=== PATIENT | male | born 1945 | race Hispanic/Latino ===

== ENCOUNTER → 2023-01-12 | Outpatient (CLI) | payer MEDICARE, OTHER | END | disposition home or self-care (01) | LOC: RAH 07:42 | PROVIDERS: ATTEND Internal Medicine Gastroenterology | DX: K74.60 Unspecified cirrhosis of liver (principal); I70.0 Atherosclerosis of aorta; Z90.49 Acquired absence of other specified parts of digestive tract | CPT/HCPCS: 76700; 93975 ==

== ENCOUNTER → 2024-02-21 | Outpatient (CLI) | payer MEDICARE | END | disposition home or self-care (01) | LOC: RAH 10:22 | PROVIDERS: ATTEND Internal Medicine | DX: M17.11 Unilateral primary osteoarthritis, right knee (principal); M25.561 Pain in right knee | CPT/HCPCS: 73560 ==

== ENCOUNTER 2024-05-10 20:38 | Emergency (ER) | payer MEDICARE ==
[~2024-05-10] VITALS: Ht 175.3 cm; Wt 68.0 kg
[2024-05-10 21:00] LABS: BASOPHILS # (AUTO) 0.04 K/uL (0.00-0.20); BASOPHILS % (AUTO) 0.6 % (0.0-5.0); EOSINOPHILS # (AUTO) 0.16 K/uL (0.00-0.70); EOSINOPHILS % (AUTO) 2.3 % (0.0-8.0); HEMATOCRIT 32.5 % (42-54); IMMATURE GRANULOCYTE ABSOLUTE 0.04 K/uL (0-1); LYMPHOCYTES # (AUTO) 1.4 K/uL (1.0-4.8); LYMPHOCYTES % (AUTO) 20.5 % (21.0-51.0); MEAN CORPUSCULAR HEMOGLOBIN 31.2 pg (27.0-33.0); MEAN CORPUSCULAR HGB CONC 33.8 g/dL (32.0-36.0); MEAN CORPUSCULAR VOLUME 92.1 fL (79-99); MONOCYTES # (AUTO) 1.1 K/uL (0.1-1.0); MONOCYTES % (AUTO) 15.5 % (3.0-13.0); NEUTROPHILS # (AUTO) 4.1 K/uL (1.8-7.7); NEUTROPHILS % (AUTO) 60.5 % (40.0-77.0); PLATELET COUNT (AUTO) 155 K/uL (130-400); RED BLOOD CELL COUNT(AUTO) 3.53 MIL/uL (4.50-6.20); RED CELL DISTRIBUTION WIDTH 13.2 % (11.0-15.5); WHITE BLOOD COUNT (AUTO) 6.8 K/uL (4.8-10.8)
[2024-05-10 21:14] LABS: B-TYPE NATRIURETIC PEPTIDE 42 pg/mL (0-100)
[2024-05-10 21:19] LABS: ALBUMIN 3.3 g/dL (3.5-5.0); BILIRUBIN,TOTAL 0.6 mg/dL (0.2-1.0); CREATININE 0.9 mg/dL (0.5-1.3); INR 1.44 (0.85-1.15); POTASSIUM 4.1 mmol/L (3.5-5.1); PROTHROMBIN TIME 15.1 SEC (9.6-11.6); TOTAL PROTEIN, SERUM 6.4 g/dL (6.0-8.3)
[2024-05-10 21:21] LABS: PARTIAL THROMBOPLASTIN TIME 23.1 SEC (26.3-35.5)
[2024-05-10 21:35] LABS: APPEARANCE,URINE CLEAR (CLEAR); BILIRUBIN,URINE NEGATIVE (NEGATIVE); COLOR,URINE COLORLESS (YELLOW); GLUCOSE, URINE (UA) NEGATIVE (NEGATIVE); KETONES,URINE NEGATIVE (NEGATIVE); LEUKOCYTE ESTERASE ,URINE NEGATIVE Leu/uL (NEGATIVE); NITRATE,URINE NEGATIVE (NEGATIVE); OCCULT BLOOD,URINE LARGE (NEGATIVE); PH,URINE 5.5 (5.0-8.0); PROTEIN,URINE NEGATIVE (NEGATIVE); UROBILINOGEN,URINE 0.2 mg/dL (0.2-1.0)
[2024-05-10 21:40] LABS: ADD UA MICROSCOPIC YES
[2024-05-10 21:42] LABS: BACTERIA,URINE RARE /HPF (None Seen); MUCUS,URINE RARE LPF (None Seen); WBC,URINE 0-1 /HPF (0-1)
[2024-05-10] MEDS ORDERED: TAMS-1 PO (21:49)
[2024-05-10] MEDS ORDERED: EZET10TA48 PO (21:49)
[2024-05-10] MEDS ORDERED: MEMA10TA21 PO (21:49)
[2024-05-10] MEDS ORDERED: WARF2TAB9 PO (21:49)
[2024-05-10] MEDS ORDERED: METO-408 PO (21:49)
[2024-05-10] MEDS ORDERED: TRAZ150T79 PO (21:49)
[2024-05-10] MEDS ORDERED: CIPR250S6 PO (21:49)
[2024-05-10] MEDS ORDERED: LINA72CA PO (21:49)
[2024-05-10] MEDS ORDERED: LEVO125C4 PO (21:49)
[2024-05-10] MEDS ORDERED: RAMI2.5C57 PO (21:49)
[2024-05-10] MEDS ORDERED: MIRT7.5T11 PO (21:49)
[2024-05-10] MEDS ORDERED: ROSU20TA73 PO (21:49)
[2024-05-10] MEDS ORDERED: AMOX500C2 PO (21:49)
[2024-05-10 22:29] VITALS: BP 135/60; PULSE 72; RESP 18; O2SAT 97
== END 2024-05-10 23:34 | disposition home or self-care (01) ==
LOC: EDH 20:38
DX: Z04.3 Encounter for examination and observation following other accident (principal); F03.90 Unspecified dementia, unspecified severity, without behavioral disturbance, psychotic disturbance, mood disturbance, and anxiety; I10 Essential (primary) hypertension; Z88.0 Allergy status to penicillin; Z79.899 Other long term (current) drug therapy; Z79.01 Long term (current) use of anticoagulants; Z79.2 Long term (current) use of antibiotics; W18.39XA Other fall on same level, initial encounter; Y93.89 Activity, other specified; Y92.89 Other specified places as the place of occurrence of the external cause; Y99.8 Other external cause status
CPT/HCPCS: 36415; 70450; 71045; 80053; 81001; 82550; 83735; 83880; 84484; 85025; 85610; 85730; 93005

== ENCOUNTER → 2024-05-21 | Outpatient (CLI) | payer MEDICARE ==
[~2024-05-21] MED LIST: AMOX500C2 PO; CIPR250S6 PO; EZET10TA48 PO; LEVO125C4 PO; LINA72CA PO; MEMA10TA21 PO; METO-408 PO; MIRT7.5T11 PO; RAMI2.5C57 PO; ROSU20TA73 PO; TAMS-1 PO; TRAZ150T79 PO; WARF2TAB9 PO
== END | disposition home or self-care (01) ==
LOC: RAH 10:28
PROVIDERS: ATTEND Internal Medicine
DX: R31.9 Hematuria, unspecified (principal); R33.9 Retention of urine, unspecified
CPT/HCPCS: 76770

== ENCOUNTER → 2024-05-28 | Outpatient (CLI) | payer MEDICARE | END | disposition home or self-care (01) | LOC: RAH 11:43 | PROVIDERS: ATTEND Internal Medicine | DX: R63.4 Abnormal weight loss (principal) | CPT/HCPCS: 74230; 92611 ==

== ENCOUNTER → 2024-09-16 | Outpatient (CLI) | payer MEDICARE ==
[~2024-09-16] MED LIST changes: -ROSU20TA73 PO; +ROSU20TA98 PO
--- NOTE | 2024-09-16 12:01 | HMCIMG ---
CHEST 1VW REASON: FEEDING DIFFICULTIES COMPARISON: 07/10/2024 FINDINGS: Single view of the chest was obtained. Lungs are clear. Heart size is normal. There is no pulmonary vascular congestion. Mediastinum and bony thorax appear unremarkable. There is been a previous median sternotomy. IMPRESSION: 1. No acute finding, no change.
== END | disposition home or self-care (01) ==
LOC: RAH 10:41
PROVIDERS: ATTEND Internal Medicine Gastroenterology
DX: R63.30 Feeding difficulties, unspecified (principal)
CPT/HCPCS: 71045

== ENCOUNTER → 2024-10-24 | Outpatient (CLI) | payer MEDICARE ==
--- NOTE | 2024-10-24 13:00 | NUR ---
MBSS COMPLETED. SILENT ASPIRATION with pudding thick and deep non-transient penetrations with honey thick liquids with no response. Recommend NPO, care home alternate means of nutrition/hydration. [employer] reviewed results and recommendations with patient, , and rn home care. [employer] educated patient/family on risks and consequences of aspiration. Speech therapy not warranted at this time. Pt with Hx of dysphagia since May 2024 likely patient's baseline diet. All questions answered. Addendum: 10/24/[address] OVIDIO AZUL Amended: Links added.
--- NOTE | 2024-10-24 14:08 | HMCIMG ---
MODIFIED BARIUM SWALLOW W CINE REASON: Dysphagia unspecified. COMPARISON: None TECHNIQUE: Modified barium swallow study was performed with the referring speech therapist. Fluoroscopy time is 1 minutes. FINDINGS: Please see procedure report by referring physician. IMPRESSION: Modified barium swallow study.
== END | disposition home or self-care (01) ==
LOC: RAH 12:26
PROVIDERS: ATTEND Internal Medicine Gastroenterology
DX: R13.10 Dysphagia, unspecified (principal); R63.30 Feeding difficulties, unspecified
CPT/HCPCS: 74230; 92611

== ENCOUNTER → 2024-12-03 | Outpatient (CLI) | payer MEDICARE ==
--- NOTE | 2024-12-03 16:15 | HMCIMG ---
CHEST 2VWS REASON: ENCOUNTER FOR OBSERVATION FOR SUSPECTED ASPIRATED FOREIGN BODY RULED OUT COMPARISON: 09/16/2024 FINDINGS: Two views of the chest were obtained. Lungs are clear. Heart size is normal. There is no pulmonary vascular congestion. Mediastinum and bony thorax appear unremarkable. There is been a previous median sternotomy. IMPRESSION: 1. No acute finding, no change.
== END | disposition home or self-care (01) ==
LOC: RAH 15:19
PROVIDERS: ATTEND Internal Medicine
DX: Z03.822 Encounter for observation for suspected aspirated (inhaled) foreign body ruled out (principal)
CPT/HCPCS: 71046

== ENCOUNTER 2025-03-15 21:00 | Emergency (ER) | payer MEDICARE ==
[~2025-03-15] VITALS: Ht 180.3 cm; Wt 59.0 kg
[~2025-03-15 21:00] MED LIST changes: -LEVO125C4 PO; +LEVO125C5 PO; -TAMS-1 PO; +TAMS-55 PO
[2025-03-15 21:33] LABS: BASOPHILS # (AUTO) 0.04 K/uL (0.00-0.20); BASOPHILS % (AUTO) 0.6 % (0.0-5.0); EOSINOPHILS # (AUTO) 0.13 K/uL (0.00-0.70); EOSINOPHILS % (AUTO) 2.1 % (0.0-8.0); HEMATOCRIT 37.3 % (42-54); IMMATURE GRANULOCYTE ABSOLUTE 0.04 K/uL (0-1); LYMPHOCYTES # (AUTO) 1.7 K/uL (1.0-4.8); MEAN CORPUSCULAR HEMOGLOBIN 30.8 pg (27.0-33.0); MEAN CORPUSCULAR HGB CONC 32.4 g/dL (32.0-36.0); MEAN CORPUSCULAR VOLUME 94.9 fL (79-99); MONOCYTES % (AUTO) 15.4 % (3.0-13.0); NEUTROPHILS # (AUTO) 3.3 K/uL (1.8-7.7); NEUTROPHILS % (AUTO) 53.3 % (40.0-77.0); PLATELET COUNT (AUTO) 169 K/uL (130-400); RED BLOOD CELL COUNT(AUTO) 3.93 MIL/uL (4.50-6.20); RED CELL DISTRIBUTION WIDTH 14.2 % (11.0-15.5); WHITE BLOOD COUNT (AUTO) 6.2 K/uL (4.8-10.8)
--- NOTE | 2025-03-15 21:48 | HMCIMG ---
Exam Type: CT HEAD/BRAIN W/O CONTRAST Clinical Information: fall with closed head injury. on warfarin Comparison: None CT Dose Index (CTDI): 57.33 mGy Dose Length Product (DLP): 956.79 total mGy-cm Findings: The examination shows atrophy. There is low attenuation throughout the periventricular white matter locations, consistent with chronic small vessel ischemic changes. No acute intra- or extra-axial fluid collections are seen. There is no evidence of acute or chronic hemorrhage. There is no mass effect or shift of midline structures. There are no areas to suggest acute infarct. The skull windows show no significant abnormalities. IMPRESSION: 1. ATROPHY AND CHRONIC SMALL VESSEL ISCHEMIC CHANGES. This study was performed using dose reduction techniques to include automated exposure control and/or adjustment of the mA and/or kV according to patient size.
--- NOTE | 2025-03-15 21:49 | NUR ---
back from [email or web address]
--- NOTE | 2025-03-15 21:50 | HMCIMG ---
Exam Type: CT cervical spine without contrast Clinical Information: fall with closed head injury. on warfarin Comparison: None Technique: Spiral axial images were performed from the base of the skull down to the thoracic vertebral bodies. Both sagittal and coronal reconstructions were performed. CT Dose Index (CTDI): 12.85 mGy Dose Length Product (DLP): 282.6 total Findings: There are degenerative changes. Degenerative disc disease is noted at multiple levels. There is reversal of normal cervical lordosis consistent with degeneration and spasm. There are no fractures. There is facet hypertrophy at multiple levels. IMPRESSION: Degenerative changes as noted. No acute pathology. No fractures seen. This study was performed using dose reduction techniques to include automated exposure control and/or adjustment of the mA and/or kV according to patient size.
[2025-03-15 21:55] LABS: CARBON DIOXIDE 30 mmol/L (21-32); CHLORIDE 108 mmol/L (101-111); CREATININE 1.1 mg/dL (0.5-1.3); GLOMERULAR FILTR. RATE CALC 69 mL/min (>90); GLUCOSE,RANDOM 97 mg/dL (70-105); SODIUM SERUM 141 mmol/L (136-145); UREA NITROGEN, BLOOD 18 mg/dL (7-18)
[2025-03-15 21:56] LABS: ALCOHOL, BLOOD < 3 mg/dL (0-10)
--- NOTE | 2025-03-15 22:11 | ERN ---
ED Note History of Present Illness Stated Complaint: TRAUMA II, FALL, HEAD INJURY, + LOC, ON WARFARIN Chief Complaint: Trauma Activation Time Seen by MD: 21:13 Allergies: Coded Allergies: Penicillins (Unverified Allergy, Unknown, 05/10/24) Home Meds Reported Medications Metoprolol Succinate (Metoprolol Succinate) 25 Mg Tab.er.24h, 25 MG PO DAILY, TAB 05/10/24 Ezetimibe (Ezetimibe) 10 Mg Tablet, 10 MG PO DAILY, TAB 05/10/24 Levothyroxine Sodium (Levothyroxine) 125 Mcg Capsule, 125 MCG PO DAILY, CAP 05/10/24 Memantine HCl (Memantine HCl) 10 Mg Tablet, 10 MG PO BID, TAB 05/10/24 Ramipril (Ramipril) 2.5 Mg Capsule, 2.5 MG PO AM, CAP 05/10/24 Warfarin Sodium (Jantoven) 2 Mg Tablet, 2 MG PO AM, TAB 05/10/24 Rosuvastatin Calcium (Rosuvastatin Calcium) 20 Mg Tablet, 20 MG PO HS, TAB 05/10/24 Mirtazapine (Mirtazapine) 7.5 Mg Tablet, 7.5 MG PO HS, TAB 05/10/24 Trazodone HCl (Trazodone HCl) 150 Mg Tablet, 150 MG PO AD, TAB 05/10/24 Tamsulosin HCl (Flomax) 0.4 Mg Cap.er.24h, 0.4 MG PO AM, CAPSULE.DR 05/10/24 Ciprofloxacin (Ciprofloxacin) 250 Mg/[address] [facility] [place], 250 MG PO BID 05/10/24 Linaclotide (Linzess) 72 Mcg Capsule, 72 MCG PO DAILY, CAP 05/10/24 Amoxicillin (Amoxicillin) 500 Mg Capsule, 500 MG PO AD, CAP 05/10/24 Past Medical History Past Medical History: Dementia, High Cholesterol, Heart Disease, Hypertension, Hypothyroid, Other Additional Past Medical Hx: ENLARGED PROSTATE Surgical History: CABG, Unknown Family History: Negative Social History: Negative RN Note Reviewed/Agreed w/PFSH: Yes Review of System Dictation Constitutional: Negative for fever,chills, and weight loss Eyes: Negative for injury, pain,redness, and discharge ENT: Negative for injury,pain or swelling Cardiovascular: Negative for chest pain, palpitations, and edema Respiratory: Negative for shortness of breath, cough, and wheezing, Abdomen/GI: Negative for abdominal pain, nausea, vomiting, diarrhea, and constipation Back: Negative for injury and pain : Negative for injury, bleeding and discharge MS/Extremity: Negative for injury and deformity Skin: Negative for rash, and discoloration Neuro: Negative for headache, weakness, numbness, tingling, and seizure Psych: Negative for suicide ideation, homicidal ideation, and hallucinations Initial Vital Sign VS Vital Signs Date Time Temp Pulse Resp B/P (MAP) Pulse Ox O2 Delivery O2 Flow Rate FiO2 03/15/25 21:01 96.8 56 16 161/60 98 Room Air 0 03/15/25 22:00 21 Physical Exam Dictation General: awake, alert, NAD Head/Face: Normocephalic, atraumatic Eyes: PERRL, EOMI, vision at baseline ENT: oral cavity clear, TMs clear, no signs of infection Neck: Trachea midline, supple, no nuchal rigidity Cardiovascular: RRR, normal S1/S2, No MRGs, no JVD Respiratory: CTAB, no respiratory distress, No rales or wheezes Abdomen: Soft, non-tender, non-distended, normal bowel sounds, no guarding or rebound. Skin: Warm, dry, normal turgor, no rash MS/Extremity: Pulses equal, no cyanosis, neurovascular intact, FROM Neuro: COAx4, GCS 15, strength 5/5, CN 2-12 intact, normal cerebellar exam, normal gait, Psych: Normal behavior, mood, and affect normal Extremities-trace edema without any palpable cords, Homans sign is negative Results (Laboratory/Radiology) Laboratory/Radiology Laboratory Tests Test 03/15/25 21:25 White Blood Count 6.2 K/uL (4.8-10.8) Red Blood Count 3.93 MIL/uL (4.50-6.20) L Hemoglobin 12.1 g/dL (14.0-18.0) L Hematocrit 37.3 % (42-54) L Mean Corpuscular Volume 94.9 fL (79-99) Mean Corpuscular Hemoglobin 30.8 pg (27.0-33.0) Mean Corpuscular Hemoglobin Concent 32.4 g/dL (32.0-36.0) Red Cell Distribution Width 14.2 % (11.0-15.5) Platelet Count 169 K/uL (130-400) Mean Platelet Volume 11.5 fL (7.5-10.5) H Immature Granulocyte % (Auto) 0.6 % (0-1) Neutrophils (%) (Auto) 53.3 % (40.0-77.0) Lymphocytes (%) (Auto) 28.0 % (21.0-51.0) Monocytes (%) (Auto) 15.4 % (3.0-13.0) H Eosinophils (%) (Auto) 2.1 % (0.0-8.0) Basophils (%) (Auto) 0.6 % (0.0-5.0) Neutrophils # (Auto) 3.3 K/uL (1.8-7.7) Lymphocytes # (Auto) 1.7 K/uL (1.0-4.8) Monocytes # (Auto) 1.0 K/uL (0.1-1.0) Eosinophils # (Auto) 0.13 K/uL (0.00-0.70) Basophils # (Auto) 0.04 K/uL (0.00-0.20) Absolute Immature Granulocyte (auto 0.04 K/uL (0-1) Nucleated Red Blood Cells 0.0 % (0.0-0.19) White Cell Morphology Comment See comments Sodium Level 141 mmol/L (136-145) Potassium Level 5.0 mmol/L (3.5-5.1) Chloride Level 108 mmol/L (101-111) Carbon Dioxide Level 30 mmol/L (21-32) Blood Urea Nitrogen 18 mg/dL (7-18) Creatinine 1.1 mg/dL (0.5-1.3) Glomerular Filtration Rate Calc 69 mL/min (>90) Random Glucose 97 mg/dL (70-105) Total Calcium 8.3 mg/dL (8.5-10.1) L Serum Alcohol < 3 mg/dL (0-10) Labs Reviewed?: Yes CT Scan Comment: REASON: fall with closed head injury. on warfarin ORDERING PHYSICIAN: KAYODE ALBERT MD PROCEDURE: HEAD WO - CT HEAD/BRAIN W/O CONTRAST Exam Type: CT HEAD/BRAIN W/O CONTRAST Clinical Information: fall with closed head injury. on warfarin Comparison: None CT Dose Index (CTDI): 57.33 mGy Dose Length Product (DLP): 956.79 total mGy-cm Findings: The examination shows atrophy. There is low attenuation throughout the periventricular white matter locations, consistent with chronic small vessel ischemic changes. No acute intra- or extra-axial fluid collections are seen. There is no evidence of acute or chronic hemorrhage. There is no mass effect or shift of midline structures. There are no areas to suggest acute infarct. The skull windows show no significant abnormalities. IMPRESSION: 1. ATROPHY AND CHRONIC SMALL VESSEL ISCHEMIC CHANGES. This study was performed using dose reduction techniques to include automated exposure control and/or adjustment of the mA and/or kV according to patient size. DICTATED BY: SYMONE CAMPO MD DATE: 03/15/252145 REASON: fall with closed head injury. on warfarin ORDERING PHYSICIAN: KAYODE ALBERT MD PROCEDURE: C SPIN WO - CT CERVICAL SPINE W/O CONTRAST Exam Type: CT cervical spine without contrast Clinical Information: fall with closed head injury. on warfarin Comparison: None Technique: Spiral axial images were performed from the base of the skull down to the thoracic vertebral bodies. Both sagittal and coronal reconstructions were performed. CT Dose Index (CTDI): 12.85 mGy Dose Length Product (DLP): 282.6 total Findings: There are degenerative changes. Degenerative disc disease is noted at multiple levels. There is reversal of normal cervical lordosis consistent with degeneration and spasm. There are no fractures. There is facet hypertrophy at multiple levels. IMPRESSION: Degenerative changes as noted. No acute pathology. No fractures seen. This study was performed using dose reduction techniques to include automated exposure control and/or adjustment of the mA and/or kV according to patient size. DICTATED BY: SYMONE CAMPO MD DATE: 03/15/252145 ELECTRONICALLY SIGNED BY: SYMONE CAMPO MD DATE: 03/15/252149 ED Course ED Course Orders Procedure Category Date Status Time Alcohol, Blood LAB 03/15/25 Complete 21:18 Cbc With Differential LAB 03/15/25 Complete 21:18 Basic Metabolic Panel LAB 03/15/25 Complete 21:18 Ct Head/Brain W/O CT 03/15/25 Resulted Contrast 21:18 Ct Cervical Spine W/O CT 03/15/25 Resulted Contrast 21:18 Chest 1vw RAD 03/15/25 Taken 21:18 Vital Signs Date Time Temp Pulse Resp B/P (MAP) Pulse Ox O2 Delivery O2 Flow Rate FiO2 03/15/25 22:00 97.2 52 16 140/55 99 Room Air* 0 21 03/15/25 21:01 96.8 56 16 161/60 98 Room Air 0 We will perform diagnostic labs, advanced imaging and administer medications according to the patient's complaint. Once the results are available, will review and personally interpreted the labs to rule out any acute life- threatening emergency the trach require immediate intervention and treatment. I will then re-evaluate the patient after treatment and diagnostic exams have return to determine whether the patient requires any further testing, can safely be discharged home or need further admission to hospital for additional treatment and evaluation. Discussed with patient's son and patient extensively at bedside went over all the labs and CAT scan findings which are unremarkable. Currently he just has a small bump and abrasion on the forehead Patient's son is willing to take him home to follow up with his primary care physician. He is not interested in any physical therapy knowing his father. DX & DISP Disposition: Discharge Departure Impression: Primary Impression: Accident due to mechanical fall without injury Additional Impressions: Closed head injury, Facial abrasion Condition: Stable Additional Instructions: Patient and the caregiver have been informed of all the diagnostic tests and the imaging conducted during the today's visit to the emergency room and has verbalized understanding of the results I have personally reviewed and interpreted all diagnostic exams performed here in the ER today as well as the vital signs documented by the nursing staff. The patient is now being discharged to home and should follow up with the primary care physician or the specialist as directed by the ER staff. Follow-up with primary care provider in 1 to 2 days. Take medications as directed here in the emergency room. Okay to continue home medications unless otherwise discussed during your visit in the emergency room today. Return to your nearest emergency room if symptoms worsen or if there is no improvement. Call 911 if you need immediate assistance. Take Tylenol or Motrin [id number] as needed and if no contraindications are present. Increase oral hydration. A wound culture or urine culture was ordered here in the emergency room department please follow-up with primary care provider and advise them to get repeat ports from our facility. If you had any Alin wrap/splints that were applied here, please do not remove them until you see your primary care or specialty. Referrals: JASBIR MCNAMARA MD (PCP) KAYODE ALBERT MD March 15, 2025 22:11
[2025-03-15 22:39] VITALS: BP 126/72; PULSE 56; RESP 16; TEMP 97.2; O2SAT 97
--- NOTE | 2025-03-16 08:25 | HMCIMG ---
Exam Type: CHEST 1VW Clinical Information: fall Comparison: None Findings: There is status post median sternotomy. The lungs are clear of infiltrates. The heart is normal in size. Impression: Clear lungs.
== END 2025-03-15 23:15 | disposition home or self-care (01) ==
LOC: EDH 21:00
DX: S00.81XA Abrasion of other part of head, initial encounter (principal); E03.9 Hypothyroidism, unspecified; E78.00 Pure hypercholesterolemia, unspecified; F03.90 Unspecified dementia, unspecified severity, without behavioral disturbance, psychotic disturbance, mood disturbance, and anxiety; I11.9 Hypertensive heart disease without heart failure; I67.82 Cerebral ischemia; Z79.01 Long term (current) use of anticoagulants; Z79.890 Hormone replacement therapy; Z79.899 Other long term (current) drug therapy; Z88.0 Allergy status to penicillin; Z95.1 Presence of aortocoronary bypass graft; W18.39XA Other fall on same level, initial encounter; Y93.89 Activity, other specified; Y92.89 Other specified places as the place of occurrence of the external cause; Y99.8 Other external cause status
CPT/HCPCS: 36415; 70450; 71045; 72125; 80048; 85025; 99284

== ENCOUNTER → 2025-04-21 | Outpatient (CLI) | payer MEDICARE ==
--- NOTE | 2025-04-21 16:07 | HMCIMG ---
LUMBAR SPINE 2-3VWS HISTORY: Low back pain COMPARISON: None FINDINGS: 3 images of the lumbar spine were obtained. There is straightening of normal lordotic curvature which may be related to muscle spasm or positioning. No loss of vertebral height is seen. No fracture or dislocation is seen. Degenerative changes are seen. There is lumbar spine spondylosis. Vascular calcifications are seen. Mild grade 1 anterolisthesis is seen at the L4-5 level. IMPRESSION: 1. No fracture is seen. There are degenerative changes. Lumbar spine spondylosis.
--- NOTE | 2025-04-21 16:08 | HMCIMG ---
RIBS UNILAT 2V RT HISTORY: Contusion COMPARISON: None TECHNIQUE: 4 images of the right ribs were obtained. FINDINGS: There is no acute displaced fracture or dislocation. Degenerative changes are seen. IMPRESSION: 1. Findings as described above.
== END | disposition home or self-care (01) ==
LOC: RAH 15:03
PROVIDERS: ATTEND Internal Medicine
DX: S20.211A Contusion of right front wall of thorax, initial encounter (principal); M47.815 Spondylosis without myelopathy or radiculopathy, thoracolumbar region; M43.16 Spondylolisthesis, lumbar region; M54.50 Low back pain, unspecified; X58.XXXA Exposure to other specified factors, initial encounter; Y93.89 Activity, other specified; Y92.89 Other specified places as the place of occurrence of the external cause; Y99.8 Other external cause status; Z91.81 History of falling
CPT/HCPCS: 71100; 72100